=== PATIENT | male | born 1955 | race Caucasian/White ===

== ENCOUNTER 2016-03-11 13:14 | Emergency (ER) | payer MEDICARE, OTHER ==
[~2016-03-11] VITALS: Ht 180.3 cm; Wt 90.0 kg
[2016-03-11 13:28] VITALS: BP 168/115; PULSE 100; RESP 16; TEMP 96.1; O2SAT 96
[2016-03-11 14:02] LABS: MEAN CORPUSCULAR HGB CONC 29.9 % (32.0-36.0)
[2016-03-11] MEDS ORDERED: ONDANSETRON HCL 4 MG/2 ML VIAL IV PUSH ONE (14:15)
[2016-03-11] MEDS ORDERED: MORPHINE SULFATE 4 MG/ML INJ IV PUSH ONE (14:15)
--- NOTE | 2016-03-11 14:24 | PD ---
HPI Chief Complaint: Skin Problem Time Seen by Provider: 14:19 Travel History International Travel<30 days: No Contact w/Intl Traveler<30days: No Traveled to known affect area: No History of Present Illness HPI 60-year-old male that presents to the ED for evaluation of weakness to the right arm. Per patient she's had this weakness since today. Per patient he believes he slept wrong in it. Patient has a chronic history of cellulitis for the past 3 years on his lower legs and per patient he gets care for this. Per patient she is currently visiting a history at a motel. Patient does have very foul smell and very cellulitic legs bilaterally which she states are painful. Patient denies taking any medications for this at this time. His main concern is the weakness to the right arm which is new. Per patient he started this morning. Per patient she cannot do extension of the wrist. Per patient he has difficulty moving his fingers. He is able to do some my examination but he cannot really extend the wrist compared to the left. He denies any injury to the head. Denies taking any blood thinners. Denies any history of stroke. No numbness, tilling, or weakness anywhere else. Only to the hand and wrist. Patient able to move the shoulder and elbow bilaterally. Patient denies any chest pain or shortness of breath. No fevers chills or sweats. Patient states that his pain on the legs is 7 out of 10. PFSH Past Surgical History Abdominal Surgery: Yes Other Surgery: Yes (BILAT LEGS UNKNOWN SURG) Social History Alcohol Use: No Tobacco Use: No Substance Use: No Allergies-Medications (Allergen,Severity, Reaction): Coded Allergies: Thorazine (Verified Allergy, Unknown, 03/11/16) Reported Meds & Prescriptions Reported Meds & Active Scripts Active No Active Prescriptions or Reported Medications Review of Systems Except as stated in HPI: all other systems reviewed are Neg Physical Exam Narrative GENERAL: SKIN: Warm and dry. see below HEAD: Atraumatic. Normocephalic. EYES: Pupils equal and round 4 mm reactive to light and accomodation. No scleral icterus. No injection or drainage. ENT: No nasal bleeding or discharge. Mucous membranes pink and moist. Tongue is midline. No uvula deviation. NECK: Trachea midline. No JVD. CARDIOVASCULAR: Regular rate and rhythm. No murmurs, S3, S4. RESPIRATORY: No accessory muscle use. Clear to auscultation. Breath sounds equal bilaterally. GASTROINTESTINAL: Abdomen soft, non-tender, nondistended. Hepatic and splenic margins not palpable. MUSCULOSKELETAL: Extremities without clubbing, cyanosis, or edema. No obvious deformities. Full range of motion of the left upper extremity. Patient has difficulty with extension of the right wrist and does have what appears to be right wrist drop on the right hand. Patient able to make a fist with 5 out of 5 strength but he cannot extend the digits secondary to weakness. Pupils pulses bilaterally. Good capillary refill in all fingers. Full range of motion of the elbow and shoulder. Patient has 2+ pitting edema on the lower extremities with significant solidity changes and what appears to be ulcerations with foul-smelling discharge on both lower legs. 2+ pulses bilaterally to lower legs. Able to move legs. NEUROLOGICAL: Awake and alert. No obvious cranial nerve deficits. Motor grossly within normal limits. Five out of 5 muscle strength in the arms and legs. Normal speech. PSYCHIATRIC: Appropriate mood and affect; insight and judgment normal. Data Data Last Documented VS Vital Signs Date Time Temp Pulse Resp B/P Pulse Ox O2 Delivery O2 Flow Rate FiO2 03/11/16 14:51 96.1 102 15 189/97 97 Room Air Orders Electrocardiogram (03/11/16 14:00) Complete Blood Count With Diff (03/11/16 14:00) Basic Metabolic Panel (Bmp) (03/11/16 14:00) Prothrombin Time / Inr (Pt) (03/11/16 14:00) Act Partial Throm Time (Ptt) (03/11/16 14:00) Magnesium (Mg) (03/11/16 14:00) Iv Access Insert/Monitor (03/11/16 14:00) Lactic Acid (03/11/16 14:00) Blood Culture (03/11/16 14:00) Chest, Single Ap (03/11/16 14:07) Ct Brain W/O Iv Contrast(Rout) (03/11/16 14:07) Wrist, Complete ([id number]) (03/11/16 ) Hand, Complete ([id number]) (03/11/16 ) Morphine Inj (Morphine Inj) (03/11/16 14:15) Ondansetron Inj (Zofran Inj) (03/11/16 14:15) Wound Culture And Gram Stain (03/11/16 14:10) Ct Cerv Spine W/O Contrast (03/11/16 ) Clindamycin Inj (Cleocin Inj) (03/11/16 14:30) Splint Or Brace Apply/Monitor (03/11/16 14:41) Cockup Hand Splint (03/11/16 ) Labs Laboratory Tests Test 03/11/16 14:20 White Blood Count 6.5 TH/MM3 Red Blood Count 4.83 MIL/MM3 Hemoglobin 9.3 GM/DL Hematocrit 31.3 % Mean Corpuscular Volume 64.8 FL Mean Corpuscular Hemoglobin 19.3 PG Mean Corpuscular Hemoglobin 29.9 % Concent Red Cell Distribution Width 22.2 % Platelet Count 306 TH/MM3 Mean Platelet Volume 8.5 FL Neutrophils (%) (Auto) 78.8 % Lymphocytes (%) (Auto) 8.8 % Monocytes (%) (Auto) 8.4 % Eosinophils (%) (Auto) 3.7 % Basophils (%) (Auto) 0.3 % Neutrophils # (Auto) 5.1 TH/MM3 Lymphocytes # (Auto) 0.6 TH/MM3 Monocytes # (Auto) 0.5 TH/MM3 Eosinophils # (Auto) 0.2 TH/MM3 Basophils # (Auto) 0.0 TH/MM3 CBC Comment AUTO DIFF Prothrombin Time 11.3 SEC Prothromb Time International 1.0 RATIO Ratio Activated Partial 26.4 SEC Thromboplast Time Sodium Level 140 MEQ/L Potassium Level 4.0 MEQ/L Chloride Level 103 MEQ/L Carbon Dioxide Level 32.9 MEQ/L Anion Gap 4 MEQ/L Blood Urea Nitrogen 14 MG/DL Creatinine 0.92 MG/DL Estimat Glomerular Filtration 83 ML/MIN Rate Random Glucose 76 MG/DL Lactic Acid Level 0.9 mmol/L Calcium Level 8.6 MG/DL Magnesium Level 2.1 MG/DL MDM Medical Decision Making Medical Screen Exam Complete: Yes Emergency Medical Condition: Yes Medical Record Reviewed: Yes Interpretation(s) Last Impressions Head CT 03/11/161406 Signed Impressions: Service Date/Time: Friday, March 11, 2016 15:04 - CONCLUSION: Negative for an acute process. Ti Khan MD FACR Chest X-Ray 03/11/161406 Signed Impressions: Service Date/Time: Friday, March 11, 2016 14:22 - CONCLUSION: No acute disease. Jamal Aden MD Wrist X-Ray 03/11/16 0000 Signed Impressions: Service Date/Time: Friday, March 11, 2016 14:29 - CONCLUSION: Negative for fracture. Ti Khan MD FACR Hand X-Ray 03/11/16 0000 Signed Impressions: Service Date/Time: Friday, March 11, 2016 14:25 - CONCLUSION: No acute disease. Jamal Aden MD Cervical Spine CT 03/11/16 0000 Signed Impressions: Service Date/Time: Friday, March 11, 2016 15:05 - CONCLUSION: Bilateral foraminal encroachment as described above. Degenerative disc disease and facet arthropathy. No evidence of acute bony or soft tissue abnormalities. Jamal Aden MD CBC & BMP Diagram 03/11/16 14:20 lactic acid WNL Differential Diagnosis Sepsis versus cellulitis versus wristdrop versus nerve palsy versus CVA versus chronic wound versus acute wound Narrative Course 60-year-old male that presents to the ED for evaluation of right wrist drop. Patient was properly examined and was found to have signs and symptoms which appear to be consistent with nerve palsy likely. Cannot rule out CVA. Patient does have significant swelling and infection to both lower legs. Unclear as to what he has been doing for it other than patient telling that his been seen a doctor who is taking care of it. He does have severe foul-smell from the wounds. My recommendation at this time is for labs and imaging. Patient was given IV pain medication. Patient was started on IV clindamycin. Labs and imaging showed slight anemia and increased neutrophils but otherwise unremarkable. CT of the cervical spine did show some chronic changes but no sign of acute disease. 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 I discussed the case with my attending Dr. Meyer who recommends brace. Patient was consult will prefer the patient to be admitted to the hospital to get IV antibiotics and get the wounds under control as they do appear to be severely infected. Patient examined and that he does not want to stay and he wants to go back to [place] to get that taken care of. He understands that if he leaves earlier without proper treatment he could lose his legs or from severe infection. He agrees and understands this. He still wants to leave. AMA: The risks of leaving against medical advice without further evaluation treatment were discussed with the patient. These risks include cardiac dysfunction, cardiac dysrhythmia, possible heart attack, possible stroke or . The patient indicated understanding of these risks and appeared to have the capacity to make this decision. Patient still wants to leave. Patient understands indications to come back. Patient understands that if anything gets worse he needs to come back. See ED worsening symptoms. He was told that he needs to follow-up with PCP or ED as soon as he gets in [place] to get his wounds taking care of from his infection taken care of. Diagnosis Primary Impression: Radial nerve palsy Qualified Code: G56.31 - Radial nerve palsy, right Additional Impression: Cellulitis Qualified Code: L03.119 - Cellulitis of lower extremity, unspecified laterality Patient Instructions: General Instructions, Narcotic given in the ED Additional Instructions: F/u PCP. See ED if worst. Take med as prescribed. Use brace everyday until better. Wound care needed. Med/Other Pt SpecificInfo: Prescription(s) given Scripts Clindamycin 150 Mg [id number] Mg PO Q6H 10 Days Prov:Mina Meyer MD 03/11/16 Disposition: 07 AGAINST MEDICAL ADVICE Condition: Royer Thakkar Mar 11, 2016 14:24
[2016-03-11] MEDS ORDERED: CLINDAMYCIN INJ 600 MG in SODIUM CHLORIDE 0.9% INJ 100 ML IV ONE (14:30)
--- NOTE | 2016-03-11 14:44 | RADRPT ---
EXAM DATE/TIME: 03/11/2016 14:22 [facility] COMPARISON: No previous studies available for comparison. INDICATIONS : Shortness of breath. MEDICAL HISTORY : None. SURGICAL HISTORY : None. ENCOUNTER: Initial ACUITY: 1 day PAIN SCORE: 0/10 LOCATION: Bilateral chest FINDINGS: A single view of the chest demonstrates the lungs to be symmetrically aerated without evidence of mas s, infiltrate or effusion. The cardiomediastinal contours are unremarkable. Osseous structures are intact. CONCLUSION: No acute disease. Jamal Aden MD on March 11, 2016 at 14:43 Board Certified Radiologist. This report was verified electronically.
[2016-03-11 14:51] VITALS: BP 189/97; PULSE 102; RESP 15; TEMP 96.1; O2SAT 97
--- NOTE | 2016-03-11 14:56 | RADRPT ---
EXAM DATE/TIME: 03/11/2016 14:25 [facility] COMPARISON: No previous studies available for comparison. INDICATIONS : Right hand pain, no injury. MEDICAL HISTORY : None. SURGICAL HISTORY : None. ENCOUNTER: Initial ACUITY: 1 day PAIN SCORE: 6/10 LOCATION: Right hand FINDINGS: Three view examination of the right hand demonstrates no soft tissue swelling, dislocation, or fractu re. The carpal bones appear intact. The interphalangeal and metacarpophalangeal joints are intact. Bony mineralization is normal. CONCLUSION: No acute disease. Jamal Aden MD on March 11, 2016 at 14:54 Board Certified Radiologist. This report was verified electronically.
[2016-03-11 15:12] LABS: AUTOMATED NEUTROPHIL # 5.1 TH/MM3 (1.8-7.7); BASOPHIL % 0.3 % (0.0-2.0); EOSINOPHIL # 0.2 TH/MM3 (0-0.4); EOSINOPHIL % 3.7 % (0.0-4.0); HEMATOCRIT 31.3 % (39.0-51.0); LYMPH % 8.8 % (9.0-44.0); LYMPHOCYTE # 0.6 TH/MM3 (1.0-4.8); MEAN CELL VOLUME 64.8 FL (80.0-100.0); MEAN CORPUSCULAR HEMOGLOBIN 19.3 PG (27.0-34.0); MONO % 8.4 % (0.0-8.0); NEUT % 78.8 % (16.0-70.0); PLATELET COUNT 306 TH/MM3 (150-450); RED BLOOD COUNT 4.83 MIL/MM3 (4.50-5.90); RED CELL DISTRIBUTION WIDTH 22.2 % (11.6-17.2); WHITE BLOOD COUNT 6.5 TH/MM3 (4.0-11.0)
[2016-03-11 15:19] LABS: APTT (PATIENT) 26.4 SEC (24.3-30.1); PROTHROMBIN TIME - PATIENT 11.3 SEC (9.8-11.6)
[2016-03-11 15:37] LABS: BICARBONATE 32.9 MEQ/L (21.0-32.0); MAGNESIUM 2.1 MG/DL (1.5-2.5)
[2016-03-11 15:46] LABS: HEMO FLAGS AUTO DIFF
--- NOTE | 2016-03-11 15:47 | RADRPT ---
EXAM DATE/TIME: 03/11/2016 14:29 [facility] COMPARISON: No previous studies available for comparison. INDICATIONS : Right wrist pain, no injury. MEDICAL HISTORY : None. SURGICAL HISTORY : None. ENCOUNTER: Initial ACUITY: 1 day PAIN SCORE: 5/10 LOCATION: Right wrist. FINDINGS: Three view examination of the right wrist demonstrates no soft tissue swelling, dislocation, or fract ure. The carpal bones are in normal alignment. The joint spaces are maintained. Bony mineralizatio n is normal. CONCLUSION: Negative for fracture. Ti Khan MD FACR on March 11, 2016 at 15:45 Board Certified Radiologist. This report was verified electronically.
--- NOTE | 2016-03-11 15:49 | RADRPT ---
EXAM DATE/TIME: 03/11/2016 15:04 [facility] COMPARISON: No previous studies available for comparison. INDICATIONS : Altered mental status. Complains of right arm weakness. RADIATION DOSE: 56.35 CTDIvol (mGy) MEDICAL HISTORY : None SURGICAL HISTORY : None. ENCOUNTER: Initial ACUITY: 1 day PAIN SCALE: 0/10 LOCATION: cranial TECHNIQUE: Multiple contiguous axial images were obtained of the head. Using automated exposure control and adjustment of the mA and/or kV according to patient size, radiation dose was kept as low as reasonably achievable to obtain optimal diagnostic quality images. FINDINGS: CEREBRUM: The ventricles are normal for age. No evidence of midline shift, mass lesion, hemorrha ge or acute infarction. No extra-axial fluid collections are seen. POSTERIOR FOSSA: The cerebellum and brainstem are intact. The 4th ventricle is midline. The cer ebellopontine angle is unremarkable. EXTRACRANIAL: The visualized portion of the orbits is intact. SKULL: The calvaria is intact. No evidence of skull fracture. CONCLUSION: Negative for an acute process. Ti Khan MD FACR on March 11, 2016 at 15:47 Board Certified Radiologist. This report was verified electronically.
--- NOTE | 2016-03-11 16:01 | RADRPT ---
EXAM DATE/TIME: 03/11/2016 15:05 [facility] COMPARISON: No previous studies available for comparison. INDICATIONS : Right arm weakness. RADIATION DOSE: 37.48 CTDIvol (mGy) MEDICAL HISTORY : None SURGICAL HISTORY : None. ENCOUNTER: Initial ACUITY: 1 day PAIN SCALE: 0/10 LOCATION: Right arm TECHNIQUE: Volumetric scanning of the cervical spine was performed. Multiplanar reconstructions in the sagittal, coronal and oblique axial planes were performed. Using automated exposure control and adjustment o f the mA and/or kV according to patient size, radiation dose was kept as low as reasonably achievable to obtain optimal diagnostic quality images. FINDINGS: Slight anterolisthesis is noted of C3 on C4. Craniocervical and cervical vertebral body alignment is otherwise well maintained. Vertebral body height is intact without evidence of compression deformity. The posterior elements are intact. Significant facet arthropathy is identified. Moderate to severe degenerative disease is seen on the left at C3-4 and C4-5. Moderate degenerative disc disease with marginal spondylosis is noted. Spondylotic spurring is seen a t the C4-5, C5-6 and C6-7 levels. Foraminal encroachment is identified on the left at C3-4 and bilaterally at C5-6 and C6-7. There no soft tissue abnormalities. CONCLUSION: Bilateral foraminal encroachment as described above. Degenerative disc disease and facet arthropathy. No evidence of acute bony or soft tissue abnormalities. Jamal Aden MD on March 11, 2016 at 15:53 Board Certified Radiologist. This report was verified electronically.
[2016-03-11] MEDS ORDERED: CLIN1CAP5 PO (16:17)
[2016-03-11 18:02] LABS: KERATOCYTES 1+ (NORMAL)
[2016-03-11 18:04] LABS: OVALOCYTES 2+ (NORMAL)
[2016-03-11 18:05] LABS: CRENATED RBCS 1+ (NORMAL)
[2016-03-11 18:06] LABS: SCAN/DIFF AUTO DIFF CONFIRMED; TARGET CELLS 1+ (NORMAL)
--- NOTE | 2016-03-14 23:04 | EKG ---
Date Performed: 03/11/2016 Time Performed: 15:32:34 PTAGE: 60 years EKG: Probable normal Sinus rhythm with VENTRICULAR PREMATURE COMPLEXES LEFT ANTERIOR FASCICULAR BLOCK NONSPECIFIC T-WAVE ABNORMALITY A BNORMAL ECG NO PREVIOUS TRACING DOCTOR: Suman Evans Interpretating Date/Time 03/14/2016 23:04:35
== END 2016-03-11 18:59 | disposition left against medical advice (07) ==
LOC: NEPC 13:14
DX: G56.30 Lesion of radial nerve, unspecified upper limb (principal); L03.119 Cellulitis of unspecified part of limb; I44.4 Left anterior fascicular block; B95.61 Methicillin susceptible Staphylococcus aureus infection as the cause of diseases classified elsewhere; B96.5 Pseudomonas (aeruginosa) (mallei) (pseudomallei) as the cause of diseases classified elsewhere; R60.0 Localized edema; M21.331 Wrist drop, right wrist; Z79.899 Other long term (current) drug therapy; R94.31 Abnormal electrocardiogram [ECG] [EKG]
CPT/HCPCS: 70450; 71010; 72125; 73110; 73130; 80048; 83605; 83735; 85025; 85610; 85730; 86403; 87040; 87070; 87077; 87186; 93005; 96365; 96375; 99285; J2270; J2405; L3908; 87205